=== PATIENT | male | born 1955 | race Caucasian/White ===

== ENCOUNTER 2017-03-21 19:22 | Inpatient (IN) | payer OTHER ==
--- NOTE | 2017-03-21 19:24 | EDPHY ---
H & P HPI/ROS: CHIEF COMPLAINT: Patient has none HISTORY OF PRESENT ILLNESS: This is a 61-year-old male who was referred to the emergency department from the nursing home, where he is currently incarcerated. He was admitted there yesterday. There is apparently concern on the part of the nursing home staff about confusion. Blood work was obtained and he was found to have a sodium of 122. The nursing home personnel wanted an ammonia level but were unable to obtain 1. He has been referred to the emergency department for further evaluation and treatment as warranted. Patient is a poor historian but tells me that he has been hospitalized twice with "brain coma". He states that he has a history of heavy drinking but cut back significantly after his brain comas. He tells me that his last drink was within the last couple of days. REVIEW OF SYSTEMS: A ten point review of systems was performed and is negative with the exception of the items mentioned in the HPI. Review of systems provided by the patient who is a poor historian. Past medical history: Alcoholism, hernia. Social history: He is currently incarcerated. He reports a history of alcohol abuse but states that he drinks much less now. He does not use tobacco products. He denies the use of illicit drugs. General Appearance: Alert. Vital signs reviewed. Blood pressure 154/114, heart rate 105. Head: There is an abrasion over the right frontal scalp. No palpable skull deformity. Eyes: Pupils equal and round, no conjunctival injection, no discharge. Anicteric. ENT, Mouth: Mucous membranes are moist, no oropharyngeal erythema or edema. Poor dentition. Neck: No lymphadenopathy, supple. Trachea midline. His voice is somewhat hoarse. Respiratory: Lungs are clear to auscultation; no wheezes, rales, or rhonchi. Cardiovascular: Tachycardic; no murmur, rub, or gallop. Gastrointestinal: Abdomen is soft and nontender, no masses or organomegaly, bowel sounds normal. Skin: Warm and dry, no rashes on exposed skin, normal color. Back: Nontender to palpation over the thoracolumbar spine. No CVAT. Extremities: Trace bilateral lower extremity edema, no calf tenderness or swelling. Neurological: Alert and oriented. Moving all four extremities easily and equally. He is oriented to person, place, year, and situation. SHAHZAD. EOMI. Facial expression symmetric. Tongue midline. Hard Candy Batch Mixer strength 5/5 bilaterally. No asterixis. Bilateral upper extremity tremor. Psychiatric: Normal affect. No agitation, cooperative. - Medical/Surgical History Hx Asthma: No Hx Chronic Respiratory Disease: No Hx Diabetes: No Hx Cardiac Disease: No Hx Renal Disease: No Hx Cirrhosis: No Hx Alcoholism: Yes Hx HIV/AIDS: No Hx Splenectomy or Spleen Trauma: No Other PMH: alcoholism, hernia - Social History Smoking Status: Former smoker Constitutional: Initial Vital Signs Temperature (C) 36.8 C 03/21/17 19:28 Heart Rate 105 H 03/21/17 19:28 Respiratory Rate 16 03/21/17 19:28 Blood Pressure 154/114 H 03/21/17 19:28 O2 Sat (%) 92 03/21/17 19:28 O2 Delivery Mode Room Air Allergies/Adverse Reactions: No Known Allergies Allergy (Unverified 10/29/15 03:22) Home Medications: Medication Instructions Recorded Aspirin [Aspirin 81mg (*)] 81 mg PO DAILY 03/21/17 Folic Acid [Folic Acid 1 MG (*)] 1 mg PO DAILY 03/21/17 Metoprolol Tartrate [Lopressor 25 25 mg PO BID 03/21/17 mg (*)] Thiamine HCl 100 mg PO DAILY 03/21/17 chlordiazePOXIDE [Librium 25 mg 25 mg PO TID #10 cap 03/23/17 (*)] traMADol [Ultram 50 mg (*)] 50 mg PO BID #1 tab 03/23/17 Medical Decision Making ED Course/Re-evaluation: 20:[address] Freitas, radiologist. Head CT negative for acute processes. I note that he has been receiving thiamine at the nursing home. Spoke with hospitalist service, Dr. Luevano accepts admission for hyponatremia. I am also concerned about the possibility of alcohol withdrawal. He has an upper extremity tremor, tachycardia, and hypertension. He does report a decrease in alcohol consumption recently. I am attempting to obtain records from his hospitalizations at [facility] and [facility]---both of which he says were for "brain coma ". Liver functions are elevated today, likely secondary to alcohol abuse. 21:[address] Manzano, substation operator chief. She agrees with the proposed treatment of a bolus of 250-500 mL of normal saline followed by recheck a basic metabolic panel. She does not recommend hypertonic saline at this point in time. Urine electrolytes, urine osmolarity and serum osmolarity have been ordered. Dr. Alvarado offered her cell phone number and says that she will be available for any further consultations. Her cell phone number is [phone]. Differential Diagnosis: I considered a differential diagnosis including but not limited to hypoglycemia , infectious process, electrolyte abnormality, head injury and intoxicants. - Data Points Laboratory Results: Laboratory Results 03/21/17 19:33 03/21/17 19:33 Medications Given: Discontinued Medications Aspirin (Aspirin) 81 mg PO DAILY LAI Stop: 09/18/17 08:59 Last Admin: 03/23/17 07:52 Dose: 81 mg Chlordiazepoxide HCl (Librium) 25 mg PO Q4HRS LAI Stop: 09/17/17 23:35 Last Admin: 03/23/17 13:10 Dose: 25 mg Enoxaparin Sodium (Lovenox) 40 mg SC DAILY LAI Stop: 09/18/17 08:59 Last Admin: 03/23/17 07:51 Dose: 40 mg Folic Acid (Folic Acid) 1 mg PO DAILY LAI Stop: 09/18/17 08:59 Last Admin: 03/23/17 07:52 Dose: 1 mg Sodium Chloride (Ns) 250 mls @ 0 mls/hr IV EDNOW ONE; Wide Open PRN Reason: Protocol Stop: 03/21/17 21:04 Last Admin: 03/21/17 21:12 Dose: 250 mls Thiamine HCl 500 mg/ Sodium (Chloride) 105 mls @ 210 mls/hr IV DAILY LAI Stop: 03/23/17 09:29 Last Admin: 03/23/17 07:55 Dose: 105 mls Dextrose/Sodium Chloride (D5w 1/2 Ns) 1,000 mls @ 75 mls/hr IV CONT LAI Stop: 09/18/17 01:29 Last Admin: 03/22/17 01:40 Dose: 1,000 mls Dextrose/Sodium Chloride (D5w 1/4 Ns) 1,000 mls @ 150 mls/hr IV CONT LAI Stop: 09/18/17 04:44 Last Admin: 03/22/17 05:27 Dose: 1,000 mls Dextrose (D5w) 250 mls @ 0 mls/hr IV ONCE ONE PRN Reason: Wide Open Stop: 03/22/17 05:01 Last Admin: 03/22/17 05:17 Dose: 250 mls Dextrose (D5w) 1,000 mls @ 200 mls/hr IV CONT LAI Stop: 09/18/17 07:29 Last Admin: 03/23/17 07:18 Dose: 1,000 mls Magnesium Sulfate/Dextrose (Magnesium Sulf 1 Gm (Premix)) 100 mls @ 100 mls/hr IV ONCE ONE Stop: 03/22/17 11:57 Last Admin: 03/22/17 11:24 Dose: 100 mls Lorazepam (Ativan Injection) 1 mg IVP Q4HRS PRN PRN Reason: Agitation Stop: 09/17/17 23:35 Last Admin: 03/22/17 00:19 Dose: 1 mg Metoprolol Tartrate (Lopressor) 25 mg PO BID LAI Stop: 09/18/17 00:14 Last Admin: 03/23/17 07:51 Dose: 25 mg Potassium Chloride (Klor-Con) 10 - 40 meq PO ONCE ONE PRN Reason: Protocol Stop: 03/22/17 10:58 Last Admin: 03/22/17 11:24 Dose: 40 meq Potassium Chloride (Klor-Con) 10 - 40 meq PO ONCE ONE PRN Reason: Protocol Stop: 03/23/17 07:22 Last Admin: 03/23/17 07:52 Dose: 10 meq Tramadol HCl (Ultram) 100 mg PO BID [facility] Stop: 09/18/17 08:59 Last Admin: 03/23/17 07:52 Dose: 100 mg Departure - Departure Disposition: [facility] Inpatient Acute Clinical Impression: Hyponatremia, Alcohol abuse Condition: Good Report Scribed for: Kay Chow Report Scribed by: Hyacinth Barber Date of Report: 03/21/17 Time of Report: 21:16 Physician Review and Approval Statement: 03/21/17 19:24 Portions of this note were transcribed by the family practice medical doctor. I, Dr. Kay Chow, personally performed the history, physical exam, and medical decision- making; and confirmed the accuracy of the information in the transcribed note.
[2017-03-21 19:51] LABS: % IMMATURE GRANULYOCYTES 0.6 % (0.0-1.1); ABSOLUTE IMMATURE GRANULOCYTES 0.03 10^3/uL (0.00-0.10); ADD DIFF? NO; ADD MORPH? NO; ADD SCAN? NO; ATYPICAL LYMPHOCYTE FLAG 30 (0-99); FRAGMENT RBC FLAG 0 (0-99); HEMATOCRIT 39.9 % (40.0-51.0); HEMOGLOBIN 14.2 g/dL (13.7-17.5); LEFT SHIFT FLG 0 (0-99); LIPEMIA HEMOLYSIS FLAG 90 (0-99); MEAN CELL HEMOGLOBIN CONCENTR. 35.6 g/dL (32.4-36.7); MEAN CELL VOLUME 87.1 fL (81.5-99.8); MEAN PLATELET VOLUME 9.7 fL (8.7-11.7); PLATELET CLUMPS FLAG 10 (0-99); PLATELET COUNT 107 10^3/uL (150-400); RED BLOOD CELL COUNT 4.58 10^6/uL (4.40-6.38); RED CELL DISTRIBUTION WIDTH 12.6 % (11.5-15.2)
[2017-03-21 20:01] LABS: INR 1.01 (0.83-1.16); PROTIME(PATIENT) 13.2 SEC (12.0-15.0)
[2017-03-21 20:18] LABS: ALANINE AMINOTRANSFERASE 165 IU/L (21-72); ALBUMIN 4.3 g/dL (3.5-5.0); ALKALINE PHOSPHATASE 71 IU/L (38-126); ANION GAP 14 mEq/L (8-16); ASPARTATE AMINOTRANSFERASE 216 IU/L (17-59); BILIRUBIN,TOTAL 1.6 mg/dL (0.1-1.4); BILIRUBIN-CONJUGATED 0.3 mg/dL (0.0-0.5); BILIRUBIN-UNCONJUGATED 1.3 mg/dL (0.0-1.1); CALCIUM 9.5 mg/dL (8.5-10.4); CARBON DIOXIDE 22 mEq/l (22-31); CHLORIDE 81 mEq/L (97-110); CREATININE 0.6 mg/dL (0.7-1.3); ETHANOL SERUM < 10 mg/dL (0-10); GLOMERULAR FILTRATION RATE > 60; GLUCOSE 97 mg/dL (70-100); POTASSIUM 3.2 mEq/L (3.5-5.2); TOTAL PROTEIN 7.5 g/dL (6.3-8.2)
[2017-03-21 20:27] LABS: SODIUM 117 mEq/L (134-144)
[2017-03-21 20:33] LABS: COLOR PALE YELLOW; LEUKOCYTE ESTERASE,URINE NEGATIVE (NEGATIVE); NITRITE,URINE NEGATIVE (NEGATIVE)
[2017-03-21] MEDS ORDERED: NS 250 ML IV ONE (21:03)
[2017-03-21] MEDS ORDERED: ONDANSETRON 4 MG/2 ML VIAL IVP PRN (22:19)
[2017-03-21] MEDS ORDERED: ACETAMINOPHEN 325 MG TAB PO PRN (22:19)
[2017-03-21] MEDS ORDERED: ONDANSETRON DISINTEGRATING 4 MG TAB PO PRN (22:19)
[2017-03-21 22:22] LABS: ANION GAP 13 mEq/L (8-16); CALCIUM 8.8 mg/dL (8.5-10.4); CARBON DIOXIDE 25 mEq/l (22-31); CHLORIDE 83 mEq/L (97-110); CREATININE 0.6 mg/dL (0.7-1.3); GLOMERULAR FILTRATION RATE > 60; GLUCOSE 85 mg/dL (70-100); POTASSIUM 2.9 mEq/L (3.5-5.2); SODIUM 121 mEq/L (134-144)
[2017-03-21] MEDS ORDERED: LORazepam 2 MG/ML INJ IVP PRN (23:36)
[2017-03-21] MEDS ORDERED: METOPROLOL TARTRATE 25 MG TAB PO SCH (23:37)
[2017-03-22] MEDS: chlordiazePOXIDE 25 MG CAP PO SCH ×7 (00:18→21:22)
[2017-03-22] MEDS: METOPROLOL TARTRATE 25 MG TAB PO SCH ×3 (00:19→21:22)
[2017-03-22] MEDS: THIAMINE HCL 500 MG in NS 100 ML IV SCH ×2 (00:19→09:27)
--- NOTE | 2017-03-22 00:42 | GHP ---
[f rep st] HISTORY AND PHYSICAL DATE OF ADMISSION: 03/21/2017 CHIEF COMPLAINT: Tremor. HISTORY OF PRESENT ILLNESS: A 61-year-old male with a history of alcohol abuse, who was referred fr om the [facility] where he is [facility] and has been since yesterday with concerns of confusion and mary mor. The halfway obtained basic lab work and noted hyponatremia; therefore, transferred him to the [facility] for evaluation. In the ICU, the patient is denying any headache, any vision cruz es, any subjective fevers or chills, any dysphagia. Describes a burning chest pain after food, he t hinks is heartburn. Denies any changes in his bowel habits. Reports trying to do his best with flu id intake but thinking he likely has been dehydrated recently. Denies any diarrhea. Denies any vom iting. Does describe heat intolerance. He did drink some alcohol prior to incarceration, said it w as minimal compared to his history. PAST MEDICAL HISTORY: 1. Alcohol abuse. 2. History as he describes of brain comas; cannot describe more about this. SOCIAL HISTORY: Currently incarcerated. Denies tobacco. Reports drinking much less than he previo usly used to, since his brain comas. Denies illicit drugs. FAMILY HISTORY: Positive for pacemaker in his father. ADVANCED DIRECTIVES: Patient is full cor, full tube. REVIEW OF SYSTEMS: A 10-point review of systems is negative with the exception of that reported in the HPI. PHYSICAL EXAMINATION: VITAL SIGNS: Blood pressure is 151/101, heart rate 105, respiratory rate 20, saturating 96% on room air, 36.8. GENERAL: This is a middle-aged male, in no acute distress. APRIL NT: Notable for dry mucous membranes. Eye exam is negative for any icterus. CARDIAC: Patient is tachycardic, but regular. PULMONARY: Good respiratory effort. Clear to auscultation bilaterally. GASTROINTESTINAL: Positive bowel sounds. ABDOMEN: Obese, nontender. MUSCULOSKELETAL: Negative for any lower extremity edema. SKIN: Patient has multiple wounds on his bilateral feet in various stages of healing. PSYCHIATRIC: He is cooperative on interview and examination. NEUROLOGIC: The patient has pronounced tremor. DATA: Sodium is 117, creatinine 0.6, anion gap of 14, AST 216, ALT 165, total bilirubin 1.6. Ethyl alcohol is measured, less than 10. Noncontrast CT of the head, which I personally reviewed and int erpreted, shows no acute intracranial findings. ASSESSMENT AND PLAN: This is a 61-year-old male, presenting with tremor. 1. Suspected acute alcohol withdrawal. Patient has tremor, tachycardia, and a history of recent us e and then sudden cessation secondary to incarceration. Will initiate IV , the CIWA doyle col, and scheduled Librium. Will follow the patient's vital signs, and examination on treatment. 2. Hyponatremia. Based on the patient's history, I suspect this is likely hypovolemic in nature. The patient received 250 cc bolus of normal saline in the emergency department. Recheck of his labo ratory is pending. Will watch q.2 for the rate of rise, and can adjust with hypotonic fluids if nec essary. 3. Transaminitis. Suspect alcohol related, based on the AST/ALT ratio. Discriminant function was less than 32. 4. History of brain "comas." The patient is not able to give me a clear history about this. I am highly suspicious he may have had complicated alcohol withdrawal hospitalizations. We will attempt to get old records to clarify. Reassured by his acute noncontrasted CT without gross abnormalities. 5. Prophylaxis with Lovenox. DIET: Regular. DISPOSITION: I am expecting greater than 2 midnights as patient is requiring treatment for both hyp onatremia which is severe, and alcohol withdrawal. I have discussed the case with the emergency holly bhandari physician. Patient will be triaged to the ICU for close laboratory monitoring and care of alcohol withdrawal. /[id number]/MODL
[2017-03-22] MEDS ORDERED: DEXMEDETOMIDINE HCL 400 MCG in NS 100 ML IV SCH (01:00)
[2017-03-22 01:10] LABS: ANION GAP 12 mEq/L (8-16); CALCIUM 9.2 mg/dL (8.5-10.4); CARBON DIOXIDE 23 mEq/l (22-31); CHLORIDE 88 mEq/L (97-110); CREATININE 0.6 mg/dL (0.7-1.3); GLOMERULAR FILTRATION RATE > 60; GLUCOSE 92 mg/dL (70-100); POTASSIUM 3.6 mEq/L (3.5-5.2); SODIUM 123 mEq/L (134-144)
[2017-03-22] MEDS ORDERED: D5W 1/2 NS 1,000 ML IV SCH (01:30)
[2017-03-22 01:45] LABS: RANDOM URINE POTASSIUM 14.2 mEq/L (0.5-35.0)
[2017-03-22 04:37] LABS: ANION GAP 11 mEq/L (8-16); CARBON DIOXIDE 25 mEq/l (22-31); CHLORIDE 91 mEq/L (97-110); CREATININE 0.5 mg/dL (0.7-1.3); GLOMERULAR FILTRATION RATE > 60; GLUCOSE 92 mg/dL (70-100); MAGNESIUM 1.4 mg/dL (1.6-2.3); POTASSIUM 3.2 mEq/L (3.5-5.2); SODIUM 127 mEq/L (134-144)
[2017-03-22] MEDS ORDERED: D5W 1/4 NS 1,000 ML IV SCH (04:45)
[2017-03-22] MEDS ORDERED: D5W 250 ML IV ONE (05:00)
[2017-03-22 06:23] LABS: % IMMATURE GRANULYOCYTES 0.3 % (0.0-1.1); ABSOLUTE IMMATURE GRANULOCYTES 0.01 10^3/uL (0.00-0.10); ADD DIFF? NO; ADD MORPH? NO; ADD SCAN? NO; ATYPICAL LYMPHOCYTE FLAG 0 (0-99); FRAGMENT RBC FLAG 0 (0-99); HEMATOCRIT 39.9 % (40.0-51.0); HEMOGLOBIN 14.2 g/dL (13.7-17.5); LEFT SHIFT FLG 0 (0-99); LIPEMIA HEMOLYSIS FLAG 90 (0-99); MEAN CELL HEMOGLOBIN CONCENTR. 35.6 g/dL (32.4-36.7); MEAN CELL VOLUME 87.1 fL (81.5-99.8); MEAN PLATELET VOLUME 9.2 fL (8.7-11.7); PLATELET CLUMPS FLAG 0 (0-99); PLATELET COUNT 90 10^3/uL (150-400); RED BLOOD CELL COUNT 4.58 10^6/uL (4.40-6.38); RED CELL DISTRIBUTION WIDTH 12.8 % (11.5-15.2)
[2017-03-22 07:03] LABS: ANION GAP 11 mEq/L (8-16); CALCIUM 9.1 mg/dL (8.5-10.4); CARBON DIOXIDE 26 mEq/l (22-31); CHLORIDE 92 mEq/L (97-110); CREATININE 0.5 mg/dL (0.7-1.3); GLOMERULAR FILTRATION RATE > 60; GLUCOSE 95 mg/dL (70-100); MAGNESIUM 1.5 mg/dL (1.6-2.3); POTASSIUM 3.2 mEq/L (3.5-5.2); SODIUM 129 mEq/L (134-144)
[2017-03-22] MEDS: D5W 1,000 ML IV SCH ×3 (07:43→21:22)
[2017-03-22] MEDS ORDERED: METOPROLOL TARTRATE 25 MG TAB PO SCH (09:00)
[2017-03-22] MEDS ORDERED: THIAMINE HCL 100 MG TAB PO SCH (09:00)
[2017-03-22] MEDS: traMADol 50 MG TAB PO SCH ×2 (09:27→21:22)
[2017-03-22] MEDS: ASPIRIN 81 MG CHEWABLE TAB PO SCH (09:28)
[2017-03-22] MEDS: FOLIC ACID 1 MG TAB PO SCH (09:29)
[2017-03-22] MEDS ORDERED: PROTOCOL MAGNESIUM 1 DOSE IV PRN (10:31)
[2017-03-22] MEDS ORDERED: PROTOCOL POTASSIUM 1 DOSE MISC PRN (10:31)
[2017-03-22] MEDS ORDERED: PROTOCOL CALCIUM 1 DOSE IV PRN (10:31)
[2017-03-22] MEDS ORDERED: PROTOCOL K PHOSPHATE 1 DOSE IV PRN (10:31)
[2017-03-22] MEDS ORDERED: POTASSIUM CL 10 MEQ TAB PO ONE (10:57)
[2017-03-22] MEDS ORDERED: MAGNESIUM SULF 1 GM/DEXTROSE 100 ML IV ONE (10:58)
[2017-03-22] MEDS: ENOXAPARIN 40 MG/0.4 ML SYR SC SCH (11:27)
--- NOTE | 2017-03-22 12:17 | HOSPPROG ---
Hospitalist Progress Note Assessment/Plan: Alcohol abuse in withdrawal - CIWA's ~10. -cont prn bzd's Hyponatremia - Na up to 129 from 117, currently on D5W at 200/hr. Per renal, will lower to ~125 for tonight. -repeat BMP now -renal consulting, appreciate assistance Elevated LFT's - suspect alcoholic liver disease. No RUQ pain. -send hepatitis studies -outpt u/s unless LFT's rising, will consider imaging here Full code DVT PPLX - Lovenox Dispo - cont inpt Subjective: Pt a bit tremulous, tangential. Denies abdominal pain, N/V. No fevers. Objective: Vital Signs Temp Pulse Resp BP Pulse Ox 36.6 C 75 17 133/91 H 95 03/22/17 08:00 03/22/17 11:00 03/22/17 11:00 03/22/17 11:00 03/22/17 11:00 Laboratory Results 03/22/17 06:15 03/22/17 06:15 03/21/17 03/22/17 03/23/17 05:59 05:59 05:59 Intake Total 1948 Output Total 0425 1825 Balance -777 -1825 PT 13.2 SEC (12.0-15.0) 03/21/17 19:33 INR 1.01 (0.83-1.16) 03/21/17 19:33 - Physical Exam Constitutional: no apparent distress Eyes: PERRL Ears, Nose, Mouth, Throat: moist mucous membranes Cardiovascular: regular rate and rhythym Respiratory: no respiratory distress Gastrointestinal: normoactive bowel sounds, soft, non-tender abdomen Skin: warm Musculoskeletal: full muscle strength Psychiatric: poor insight ICD10 Worksheet Patient Problems: Problems Problem Status Onset Hyponatremia Acute
[2017-03-22 13:03] LABS: ANION GAP 8 mEq/L (8-16); CALCIUM 9.1 mg/dL (8.5-10.4); CARBON DIOXIDE 25 mEq/l (22-31); CHLORIDE 93 mEq/L (97-110); CREATININE 0.6 mg/dL (0.7-1.3); GLOMERULAR FILTRATION RATE > 60; GLUCOSE 96 mg/dL (70-100); POTASSIUM 3.9 mEq/L (3.5-5.2); SODIUM 126 mEq/L (134-144)
--- NOTE | 2017-03-22 13:38 | GCON ---
[f rep st] CONSULTATION NEPHROLOGY CONSULTATION. DATE OF CONSULTATION: 03/22/2017 REASON FOR THE CONSULTATION: Hyponatremia. HISTORY OF PRESENT ILLNESS: I have been asked to evaluate this patient regarding his hyponatremia. He is a 61-year-old gentleman with history of alcohol abuse. He was incarcerated on the , I believe for DUI. Yesterday he had lab work performed for confusion; it is unclear if his mental status had worsened since his incarceration or if this was stable. His labs demonstrated a sodium of 122, and he was sent to the emergency room. Labs here yesterday evening at 7:30 p.m. documented a sodium of 117. He was tachycardic but not hypotensive. He was felt to be volume depleted and did receive a small bolus of normal saline. Followup labs at 10 p.m. revealed sodium of 121. Serial labs thereafter documented continued increases in his sodium to as high as 129 at 6:15 this morning. At that time nephrology was contacted for assistance and he was started on D5W; I do not believe he received any additional IV fluids prior to that aside from his normal saline bolus in the ER. He has not been on an oral fluid restriction, but apparently has not been taking much in the way of p.o. intake. His urine output has been copious, he has made approximately 4.5 L of urine since admission. Urine studies on admission demonstrated a urine specific gravity 1.008, urine osmolality of 309, and a random urine sodium of 57. His electrolytes have otherwise been notable for hypokalemia and hypomagnesemia. His creatinine has been normal at 0.6. His mental status has waxed and waned since admission. He was hallucinating earlier in the day and is on alcohol withdrawal protocol. Currently, he is awake and alert and answers questions appropriately, though somewhat tangentially. His ability to provide a reliable history at this point is somewhat questionable. He denies knowledge of previous episodes of hyponatremia, but does report an episode of "coma" in the past. PAST MEDICAL HISTORY: Alcohol abuse, probably complicated by episodes of withdrawal. PAST SURGICAL HISTORY: Umbilical hernia repair. SOCIAL HISTORY: Born in [facility] but moved to [facility] as a child. After high school, moved to [place] and subsequently to [place]. 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 History significant for alcohol abuse as noted above, though prior to his incarceration he claims to have only been drinking a 6-pack of beer every week or 2. FAMILY HISTORY: Negative for renal disease of which he is aware. ALLERGIES: No known drug allergies. CURRENT MEDICATIONS: He is receiving D5W at 200 cc/hour. Other medications include aspirin 81 mg daily, Librium every 4 hours, Lovenox 40 mg subcutaneously daily, folic acid 1 mg daily, thiamin 100 mg IV daily, and tramadol 100 mg twice daily. He has received periodic doses of IV potassium and magnesium. REVIEW OF SYSTEMS: He denies any significant nausea, vomiting, or diarrhea. He does have some issues of pain in his legs. Aside from other positives in the HPI, the remainder of a 10-organ system review is negative, though his ability to provide an accurate review of systems is suspect at this point. PHYSICAL EXAMINATION: GENERAL: In no acute distress but is somewhat tremulous. VITAL SIGNS: Blood pressure 133/91, heart rate 75, oxygenation is 95% on 2 L. HEENT: Sclerae anicteric. Oral mucosa is moist. NECK: Supple without JVD or lymphadenopathy. No carotid bruits. LUNGS: Clear to auscultation bilaterally. BACK: No CVA tenderness. HEART: Regular rate and rhythm; I do not appreciate murmurs, gallops, or rubs. ABDOMEN: Soft and nontender with normoactive bowel sounds. I do not appreciate hepatosplenomegaly , masses, or bruits. EXTREMITIES: There is no lower extremity edema. His feet are warm and appear well perfused. SKIN: No skin rashes. NEURO: He is awake and alert. He is somewhat tremulous. There is no facial droop. : Gil catheter is absent. LABORATORY DATA: Most recent labs show sodium 129, potassium 3.2, chloride 92, CO2 26, BUN 9, creatinine 0.5, glucose 95, calcium 9.1, phosphorus 4.5, magnesium 1.5. Yesterday evening his urine osmolality was 309 with a urine sodium of 57. Urinalysis is positive for 1+ protein and trace ketones; negative for blood. White blood cell count is 3.0, hemoglobin 14.2, platelets 90. Alcohol level was negative. INR was normal. IMPRESSION/PLAN: 1. Hyponatremia: Though his urine electrolytes were not completely consistent with volume depletion, he clearly has had a vigorous response to a small dose of normal saline on presentation and is now polyuric. His sodium has corrected more rapidly than recommended. He has now been on D5W for approximately 6 hours , I have asked that his repeat labs be done stat. Ideally, I would like his sodium to be approximately 125 until 7:30 this evening, and to not exceed 135 by tomorrow evening. If his sodium does not decrease significantly on his repeat labs, he will require DDAVP. He should not be placed on an oral fluid restriction. I would continue his current rate of D5W for now; though, if he receives DDAVP, this will need to be decreased and possibly even discontinued to avoid inadvertently decreasing his sodium to below 125. He will require frequent lab draws, at least through this afternoon. If it appears his sodium has stabilized, and they could probably be decreased in frequency. He reports poor dietary intake for several days prior to his incarceration, low-solute intake could be playing a role in his hyponatremia. He denies significant alcohol consumption prior to incarceration, though this history is somewhat suspect. He reportedly has been trying to push oral fluids (nonalcoholic). This, in and of itself, would tend to promote hyponatremia. 2. Hypokalemia: This is being replaced appropriately. If he is able to tolerate oral medications, I would strongly consider placing him on a daily oral supplement. 3. Hypomagnesemia: This has being replaced IV; this should be continued. 4. Alcohol withdrawal: He is on CIWA protocol. Thank you for the consultation. We will follow with you. /[id number]/MODL MTDD
--- NOTE | 2017-03-22 18:09 | GCON ---
[f rep st] CONSULTATION PULMONARY CRITICAL CARE CONSULTATION DATE OF CONSULTATION: 03/22/2017 REASON FOR CONSULTATION: Alcohol withdrawal, hyponatremia. HISTORY: The patient is a 61-year-old, who [facility] secondary to confusion and tremo r. He has a history of chronic alcohol abuse and was felt to be withdrawing from alcohol. He was a lso found to be hyponatremic. He is being treated for both. It is difficult to determine how much alcohol he was actually drinking prior to being incarcerated a couple of days ago. At the current time, he has no specific complaints. He is tremulous. He knows he is in the [facility], knows who he is, and knows that it is February 2017. PAST MEDICAL HISTORY: Chronic alcohol abuse. He describes several possible hospitalizations in the last year where he was "in coma." At least one sounds like it was associated with severe influenza pneumonia? These were not at [facility]. He thinks he was in [facility] and possibly [facility]. SOCIAL HISTORY: The patient is homeless. He has a sister, who lives in [place]. He has been in [facility]. History is positive for alcohol. He denies smoking. He denies recent marijuana use. FAMILY HISTORY: Noncontributory. REVIEW OF SYSTEMS: A 10-point Review of Systems is negative. PHYSICAL EXAMINATION: GENERAL: Reveals a gentleman with an obvious tremor. He is sleeping, but is arousable, conversant and appropriate. VITAL SIGNS: Blood pressure is 130/80, heart rate 80 with sinus rhythm on the monitor. Respiratory rate is 16. He is on 2 L with saturations in the mid 90s. He is afebrile. HEENT/NECK: Remarkable for somewhat dry mucous membranes. There is no lymphaden opathy or thyromegaly, no obvious jugular venous distention. The neck is supple. Pupils appear equ al. CHEST: Reveals somewhat decreased breath sounds bilaterally, especially at the bases. There a re no significant rales, no wheezes, no rhonchi. HEART: Regular in rate and rhythm. There is a so ft systolic murmur, no gallop. ABDOMEN: Soft and nontender, slightly distended. There is no obvio us organomegaly. EXTREMITIES: Unremarkable for edema, cords, or tenderness. NEUROLOGIC: Nonfocal from a motor standpoint. Sensation is intact. He moves all extremities equally with adequate stre ngth. A coarse tremor is present. He is oriented x2-1/2. DATABASE: CT scan of the head on admission was without acute abnormality. LABORATORY: White blood cell count is 3000, hematocrit 40, platelets 90,000. PT and PTT were jose a l on admission. Sodium was 117 on admission, currently 128. Potassium is 3.9. BUN and creatinine are normal. Calcium is 9.1, phosphorus 4.5, magnesium low at 1.5. Urinalysis was negative on admis tiffanie. Blood alcohol was negative. ASSESSMENT: 1. Alcohol withdrawal. I think this is the primary etiology for his confusion and tremor. He is o n the [facility] [place] Withdrawal Assessment protocol with [facility] Withdrawal Assessmen t scores of approximately 9. He is on scheduled Librium and p.r.n. Ativan. He is stable at this ti me. 2. Hyponatremia. Sodium was significantly low on admission and has come up nicely with initial the rapies. The renal service is now involved and is taking over control of his sodium management. Cur rent sodium is acceptable at 128. Thyroid functions are normal. He has not been on diuretics. The re is no evidence of a pulmonary issue. The etiology is unclear. 3. History of recent hospitalizations within the last year by his report. Records can be reviewed when available. 4. Deep vein thrombosis prophylaxis on enoxaparin. 5. Gastrointestinal prophylaxis: None indicated, eating. PLAN AND RECOMMENDATIONS: The patient will be kept in the intensive care unit for his alcohol withd nemo. Scheduled Librium will be continued along with p.r.n. Ativan. Precedex can be used possibly if needed. Sodiums will be followed and appropriate therapies given. Sodium will be allowed to ri se slowly. His electrolytes will be followed and replaced per protocols. CBC will be followed. Further plans and recommendations will be made based on his progress over the next 12-24 hours. /[id number]/MODL
[2017-03-22 18:53] LABS: SODIUM 127 mEq/L (134-144)
[2017-03-22 20:48] LABS: HEPATITIS B SURFACE ANTIBODY NEGATIVE (NEGATIVE)
[2017-03-22 21:27] VITALS: TEMP 97.6
[2017-03-23] MEDS: D5W 1,000 ML IV SCH ×3 (00:50→07:18)
[2017-03-23] MEDS: chlordiazePOXIDE 25 MG CAP PO SCH ×4 (02:11→13:10)
[2017-03-23 06:04] VITALS: RESP 10; O2SAT 96
[2017-03-23 06:06] LABS: HEMATOCRIT 40.3 % (40.0-51.0); HEMOGLOBIN 13.9 g/dL (13.7-17.5); IONIZED CALCIUM 1.13 MMOL/L (1.12-1.30); MEAN CELL HEMOGLOBIN 30.7 pg (27.9-34.1); MEAN CELL HEMOGLOBIN CONCENTR. 34.5 g/dL (32.4-36.7); RED BLOOD CELL COUNT 4.53 10^6/uL (4.40-6.38)
[2017-03-23 06:17] LABS: ALANINE AMINOTRANSFERASE 177 IU/L (21-72); ALBUMIN 3.3 g/dL (3.5-5.0); ALKALINE PHOSPHATASE 91 IU/L (38-126); ANION GAP 9 mEq/L (8-16); ASPARTATE AMINOTRANSFERASE 152 IU/L (17-59); BILIRUBIN,TOTAL 0.9 mg/dL (0.1-1.4); BILIRUBIN-CONJUGATED 0.2 mg/dL (0.0-0.5); BILIRUBIN-UNCONJUGATED 0.7 mg/dL (0.0-1.1); CALCIUM 8.7 mg/dL (8.5-10.4); CARBON DIOXIDE 23 mEq/l (22-31); CHLORIDE 93 mEq/L (97-110); CREATININE 0.6 mg/dL (0.7-1.3); GLOMERULAR FILTRATION RATE > 60; GLUCOSE 118 mg/dL (70-100); MAGNESIUM 1.7 mg/dL (1.6-2.3); POTASSIUM 3.9 mEq/L (3.5-5.2); SODIUM 125 mEq/L (134-144); TOTAL PROTEIN 6.3 g/dL (6.3-8.2)
[2017-03-23] MEDS ORDERED: POTASSIUM CL 10 MEQ TAB PO ONE (07:21)
[2017-03-23] MEDS: ENOXAPARIN 40 MG/0.4 ML SYR SC SCH (07:51)
[2017-03-23] MEDS: METOPROLOL TARTRATE 25 MG TAB PO SCH (07:51)
[2017-03-23] MEDS: traMADol 50 MG TAB PO SCH (07:52)
[2017-03-23] MEDS: ASPIRIN 81 MG CHEWABLE TAB PO SCH (07:52)
[2017-03-23] MEDS: FOLIC ACID 1 MG TAB PO SCH (07:52)
[2017-03-23 07:53] VITALS: BP 137/79; PULSE 78
[2017-03-23] MEDS: THIAMINE HCL 500 MG in NS 100 ML IV SCH (07:55)
--- NOTE | 2017-03-23 08:41 | SOAPPROG ---
SOAP Progress Note Assessment/Plan: Assessment:Plan: Hyponatremia-likely due to volume depletion -urine studies did not support this, but clinical response to NS rapid -rate of correction slowed down with D5W -now can stop IVF and allow to correct to normal levels on his own -labs again at noon and 6p -will follow 03/23/17 08:38 Subjective: still feels fuzzy complains of leg symptoms Objective: Vital Signs Temp Pulse Resp BP Pulse Ox 36.4 C 78 10 L 137/79 H 96 03/22/17 21:00 03/23/17 07:51 03/23/17 06:00 03/23/17 07:51 03/23/17 06:00 Laboratory Results 03/23/17 05:50 03/23/17 05:50 03/22/17 03/23/17 03/24/17 05:59 05:59 05:59 Intake Total 1948 6758 Output Total 2725 4875 400 Balance -777 1883 -400 PT 13.2 SEC (12.0-15.0) 03/21/17 19:33 INR 1.01 (0.83-1.16) 03/21/17 19:33 Physical Exam - Physical Exam General Appearance: alert, no apparent distress EENT: normal ENT inspection Neck: normal inspection Respiratory: lungs clear, normal breath sounds, No respiratory distress Cardiac/Chest: regular rate, rhythm, No diastolic murmur, No systolic murmur Abdomen: normal bowel sounds, non-tender, soft, No organomegaly, No hepatomegaly , No splenomegaly Skin: normal color, warm/dry Extremities: No swelling ICD10 Worksheet Patient Problems: Problems Problem Status Onset Hyponatremia Acute
--- NOTE | 2017-03-23 12:52 | PDINTPN ---
[facility] Progress Note Assessment/Plan: Assessment: ETOH withdrawal: See what down to 5. On scheduled Librium, doing well. Tremor quite minimal this morning. Oriented, appropriate, ambulated with physical therapy. Hyponatremia: Resolving. Sodium coming up. 130 now. Recommend recheck sodium in alf on Saturday. Elevated liver function studies: Likely all secondary to recent alcohol abuse. Hepatitis serology is all negative. No evidence of cirrhosis. Ammonia is normal as is PT/INR. Metabolic: No other issues defied. Plan: Medically stable. Alcohol withdrawal significantly better. Hyponatremia resolving. Okay for discharge back to alf today. Recommend continuing Librium at 25 mg three times daily today and tomorrow, then twice daily for 2 days, then stop. He can be placed on the alf's alcohol withdrawal protocol if needed. Recommend a basic metabolic panel to recheck sodium on Saturday. I can be contacted at [phone] if problems developed after transfer back to alf. All the above discussed with the hospitalist, nursing, ICU multi disciplinary team, social work and Ariela, the nurse at the alf. Subjective: Doing better. Up walking with physical therapy. Got a shower today. Tremor much less. Cooperative, conversant Objective: Vital Signs Temp Pulse Resp BP Pulse Ox 36.4 C 78 10 L 137/79 H 96 03/22/17 21:00 03/23/17 07:51 03/23/17 06:00 03/23/17 07:51 03/23/17 06:00 Laboratory Results 03/23/17 05:50 03/23/17 11:15 03/22/17 03/23/17 03/24/17 05:59 05:59 05:59 Intake Total 0474 6768 Output Total 0360 6565 600 Balance -777 1883 -600 PT 13.2 SEC (12.0-15.0) 03/21/17 19:33 INR 1.01 (0.83-1.16) 03/21/17 19:33 Laboratory Tests 03/23/17 03/23/17 05:50 05:50 Sodium 125 L Potassium 3.9 Chloride 93 L Carbon Dioxide 23 Anion Gap 9 BUN 6 L Creatinine 0.6 L Estimated GFR > 60 Glucose 118 H Ionized Calcium 1.13 Conjugated Bilirubin 0.2 AST 152 H ALT 177 H Albumin 3.3 L Physical Exam - Physical Exam General Appearance: alert, no apparent distress EENT: other ( on room air) Neck: normal inspection ( no JVD) Respiratory: lungs clear, decreased breath sounds ( at bases) Cardiac/Chest: regular rate, rhythm Abdomen: normal bowel sounds, non-tender, soft Skin: normal color, warm/dry Extremities: No pedal edema Neuro/Psych: no motor/sensory deficits, cognition abnormalities ( improved) ICD10 Worksheet Patient Problems: Problems Problem Status Onset Hyponatremia Acute
--- NOTE | 2017-03-23 15:47 | GDS ---
[f rep st] DISCHARGE SUMMARY DISCHARGE DIAGNOSES: 1. Alcohol abuse, in withdrawal. Condition improved. 2. Hyponatremia, likely secondary to volume depletion. 3. Transaminitis, likely secondary to alcoholic liver disease. CONSULTANTS: 1. Dr. Sujit Carranza, nephrology. 2. Dr. Darnell Daly, pulmonology. HISTORY: For details, please see the history and physical dated March 21, 2017. In brief, the brittney calle is a 61-year-old male with history of alcohol abuse, who presented to the emergency department from long-term, in alcohol withdrawal. HOSPITAL COURSE: Patient was admitted to the intensive care unit. Received scheduled Librium, with p.r.n. Ativan. His CIWA scores have improved to 5 on the day of discharge. He will be sent home w ith a 4 day Librium taper. He presented with a serum sodium of 117. He has received hypertonic yue ine, and due to somewhat rapid over-correction, he was changed to D5W, and was allowed to slowly cor rect. His sodium on the day of discharge is 130. DISPOSITION: Patient is discharged to the long-term, in stable condition. FOLLOWUP: He should have a followup basic metabolic panel in 2 days, and follow up with his primary care physician, Dr. Chao Morales as able. The case was discussed with the healthcare provider at [facility], and she is aware of the plan, including a Librium taper and repeat basic metabolic panel on Saturday. DISCHARGE MEDICATIONS: Please see [facility] for complete updated outpatient medication list. New medication on discharge includes Librium 25 mg p.o. t.i.d. for 2 days, then 25 mg p.o. b.i.d. fo r 2 days, then off. I also decreased his tramadol to 50 mg p.o. b.i.d. He will continue all other outpatient medications including thiamine, metoprolol, folic acid, and aspirin. I discontinued his atenolol in favor of metoprolol. /[id number]/MODL
[2017-03-24] MEDS ORDERED: THIAMINE HCL 100 MG TAB PO SCH (09:00)
== END 2017-03-23 14:31 | DRG 641 ==
LOC: EEVIPCON 19:22 → F2N 22:39
PROVIDERS: ADMIT Student in an Organized Health Care Education/Training Program; ATTEND Hospitalist
PROC: HZ2ZZZZ Detoxification Services for Substance Abuse Treatment (ICD-10-PCS; principal; 2017-03-21)
DX: E87.1 Hypo-osmolality and hyponatremia (principal); F10.231 Alcohol dependence with withdrawal delirium; K70.9 Alcoholic liver disease, unspecified; E87.6 Hypokalemia; E83.42 Hypomagnesemia; M79.604 Pain in right leg; M79.605 Pain in left leg; Z59.0 Homelessness
CPT/HCPCS: 86704-90; 97162-GP; 97166-GO; G0472; G0480; J1650; J2060; J3411; J3475